=== PATIENT | male | born 1985 | race Caucasian/White ===

== ENCOUNTER → 2018-05-19 | Emergency (ER) | payer OTHER ==
[~2018-05-19] VITALS: Ht 172.7 cm; Wt 87.1 kg
== END | disposition home or self-care (01) ==
LOC: ER 18:36
DX: H60.91 Unspecified otitis externa, right ear (principal)

== ENCOUNTER 2018-09-12 10:40 | Emergency (ER) | payer OTHER ==
[~2018-09-12] VITALS: Ht 172.7 cm; Wt 88.5 kg
== END 2018-09-12 14:59 | disposition home or self-care (01) ==
LOC: ER 10:40
DX: N20.0 Calculus of kidney (principal); R10.31 Right lower quadrant pain

== ENCOUNTER 2019-07-11 18:24 | Emergency (ER) | payer OTHER ==
[~2019-07-11] VITALS: Ht 172.7 cm; Wt 95.3 kg
== END 2019-07-11 20:58 | disposition home or self-care (01) ==
LOC: ER 18:24
DX: N20.1 Calculus of ureter (principal)

== ENCOUNTER 2020-02-17 15:27 | Emergency (ER) | payer OTHER ==
[~2020-02-17] VITALS: Ht 172.7 cm; Wt 92.1 kg
== END 2020-02-17 17:35 | disposition home or self-care (01) ==
LOC: ER 15:27
DX: R06.02 Shortness of breath (principal); F41.8 Other specified anxiety disorders; Z20.828 Contact with and (suspected) exposure to other viral communicable diseases; J11.1 Influenza due to unidentified influenza virus with other respiratory manifestations